=== PATIENT | female | born 1965 | race Caucasian/White ===

== ENCOUNTER 2024-03-11 15:28 | Emergency (ER) | payer BC ==
[2024-03-11] MEDS ORDERED: MOTRIN 600 MG ONE (15:43)
[2024-03-11] MEDS ORDERED: ZOFRAN ODT 4 MG ONE (15:43)
[2024-03-11] MEDS ORDERED: TYLENOL 325 MG ONE (15:44)
[2024-03-11] MEDS: MOTRIN 600 MG PO STA (15:46)
[2024-03-11] MEDS: ZOFRAN ODT 4 MG PO ONE (15:49)
[2024-03-11] MEDS: TYLENOL 325 MG PO STA (15:50)
[2024-03-11 16:23] LABS: INFLUENZA A NEGATIVE (NEGATIVE); INFLUENZA B NEGATIVE (NEGATIVE); RESPIRATORY SYNCTIAL VIRUS NEGATIVE (NEGATIVE); SARS-CoV-2 Xpert Express NEGATIVE (NEGATIVE)
[2024-03-11 16:50] LABS: Appearance Clear (Clear); Bacteria None Seen /HPF (None Seen); Bilirubin Negative (Negative); Blood Trace (Negative); Epithelial Cells None Seen /HPF (None Seen); Glucose, Urine Negative (Negative); Hyaline Casts NONE SEEN /LPF (0-2); Ketones Negative (Negative); Leukocyte Esterase Negative (Negative); Nitrite Negative (Negative); Ph 7.5 (4.6-8.0); Protein,Urine Dip Negative (Negative); Urobilinogen 0.2 mg/dL (0.2); WBC 0-2 /HPF (0-5)
[2024-03-11 16:58] LABS: ADD URINE CULTURE? NO (NO)
[2024-03-11 17:07] VITALS: RESP 20; TEMP 100.5
[2024-03-11 17:33] LABS: Absolute Neutrophil Ct (ANC) 4.79 x10^3/uL (1.56-6.13); BASOPHIL % 1.2 % (0.1-1.2); Basophil (Absolute #) 0.07 x10^3/uL (0.01-0.08); Eosinophil % 1.1 % (0.7-5.8); Eosinophil (Absolute #) 0.06 x10^3/uL (0.04-0.36); Hemoglobin 11.2 g/dL (11.2-15.7); IMMATURE GRAN # 0.02 x10^3u/L (0.001-0.031); IMMATURE GRAN % 0.4 % (0.001-0.429); Lymphocyte (Absolute #) 0.37 x10^3/uL (1.18-3.74); Lymphocytes % 6.5 % (19.3-51.7); Mean Cell Volume 93.4 fL (79.4-94.8); Mean Corpuscular Hemoglobin 30.8 pg (25.6-32.2); Mean Corpuscular Hgb Concent. 32.9 g/dL (32.2-35.5); Mean Platelet Volume 9.7 fL (9.4-12.3); Monocyte (Absolute #) 0.38 x10^3/uL (0.24-0.86); Monocytes % 6.7 % (4.7-12.5); Neutrophil % 84.1 % (34.0-71.1); Platelet Count 185 x10^3/uL (182-369); Red Blood Count 3.64 x10^6/uL (3.93-5.22); Red Cell Distribution Width 12.7 % (11.7-14.4); White Blood Count 5.7 x10^3/uL (3.98-10.04)
--- NOTE | 2024-03-11 17:36 | ERPHSYRPT ---
- History of Present Illness Time Seen by Provider: 03/11/24 15:45 Source: patient Exam Limitations: no limitations Patient Subjective Stated Complaint: pt states bodyaches and chills Triage Nursing Assessment: pt ambulated into the er; pt is axo x4; c/o fever; pt states 8/10 generalized bodyaches; febrile; clear lung sounds; skin hot to the touch, dry; no respiratory distress present; hypertensive Physician History: 58-year-old female presents to our ED for evaluation of bodyaches and chills. Patient was observed to be febrile in our ED. She has not taken any antipyretics. Patient states her p.o. has been decreased p.o. due to not feeling well. Mild nausea. No chest pain or shortness of breath no vomiting no diarrhea no rash. Timing/Duration: today Severity: moderate Modifying Factors: Improves With: nothing Associated Symptoms: denies symptoms Allergies/Adverse Reactions: No Known Drug Allergies Allergy (Unverified 03/11/24 15:35) Home Medications: Abemaciclib [Verzenio] 100 mg PO BID 03/11/24 [History] Atorvastatin Calcium 20 mg PO DAILY 03/11/24 [History] Letrozole 2.5 mg PO DAILY 03/11/24 [History] Hx Tetanus, Diphtheria Vaccination/Date Given: No Hx Influenza Vaccination/Date Given: No Hx Pneumococcal Vaccination/Date Given: No Immunizations Up to Date: No Travel Risk - International Travel Have you traveled outside of the country in past 3 weeks: No - Emerging Infectious Disease Are you exhibiting symptoms associated with any current EIDs: Yes Symptoms: Fever, Headaches/Body Aches/ - Review of Systems Constitutional: No Symptoms, No Fever, No Chills Eyes: No Symptoms Ears, Nose, & Throat: No Symptoms Respiratory: No Symptoms, No Cough, No Dyspnea Cardiac: No Symptoms, No Chest Pain, No Edema, No Syncope Abdominal/Gastrointestinal: No Symptoms, No Abdominal Pain, No Nausea, No Vomiting, No Diarrhea Genitourinary Symptoms: No Symptoms, No Dysuria Musculoskeletal: No Symptoms, No Back Pain, No Neck Pain Skin: No Symptoms, No Rash Neurological: No Symptoms, No Dizziness, No Focal Weakness, No Sensory Changes Psychological: No Symptoms Endocrine: No Symptoms Hematologic/Lymphatic: No Symptoms Immunological/Allergic: No Symptoms All Other Systems: Reviewed and Negative - Past Medical History Pertinent Past Medical History: Yes Neurological History: No Pertinent History ENT History: No Pertinent History Cardiac History: High Cholesterol Respiratory History: Sleep Apnea Endocrine Medical History: No Pertinent History Musculoskeletal History: No Pertinent History GI Medical History: GERD History: Renal Disease Psycho-Social History: No Pertinent History Female Reproductive Disorders: Breast Cancer - Past Surgical History Past Surgical History: Yes Neuro Surgical History: No Pertinent History Cardiac: No Pertinent History Respiratory: No Pertinent History Gastrointestinal: No Pertinent History Genitourinary: No Pertinent History Musculoskeletal: No Pertinent History Female Surgical History: Hysterectomy, Lumpectomy Other Surgical History: left breast surgery - Social History Smoking Status: Never smoker Exposure to second hand smoke: Yes Drug Use: none - Social Determinants of Health Will the patient participate in the screening: Yes Do you worry about a steady place to live?: No Do you have any problems with any of the following?: No known problems In the past 12 months,have you had to go without utilities?: No Transportation Issues: No Has anyone in your support network made you feel unsafe?: No Have you or anyone in your house had to go without enough: No - Nursing Vital Signs Nursing Vital Signs: Initial Vital Signs Blood Pressure 185/97 03/11/24 15:34 Pain Scale Pain Intensity 4 - Physical Exam General Appearance: no apparent distress, alert Eye Exam: PERRL/EOMI, eyes nml inspection Ears, Nose, Throat Exam: normal ENT inspection, TMs normal, pharynx normal, other (Dry oral mucous membranes) Neck Exam: normal inspection, non-tender, supple, full range of motion Respiratory Exam: normal breath sounds, lungs clear, airway intact, No respiratory distress Cardiovascular Exam: regular rate/rhythm, normal heart sounds, normal peripheral pulses Gastrointestinal/Abdomen Exam: soft, normal bowel sounds, No tenderness, No mass Back Exam: normal inspection, normal range of motion, No CVA tenderness, No vertebral tenderness Extremity Exam: normal inspection, normal range of motion, pelvis stable Neurologic Exam: alert, oriented x 3, cooperative, normal mood/affect, nml cereb ellar function, nml station & gait, sensation nml, No motor deficits Skin Exam: normal color, warm, dry, No rash Lymphatic Exam: No adenopathy SpO2 Interpretation: normal SpO2: 95 O2 Delivery: Room Air - Course Nursing assessment & vital signs reviewed: Yes Ordered Tests: Active Orders 24 hr Category Date Time Status CBC W DIFF Stat Lab 03/11/24 17:25 Completed CMP Stat Lab 03/11/24 17:25 Completed Lactic Acid Stat Lab 03/11/24 17:29 Completed UA W/RFX UR CULTURE Stat Lab 03/11/24 16:43 Completed Medication Summary Generic Name Dose Route Start Last Admin Trade Name Ana Laura PRN Reason Stop Dose Admin Sodium Chloride 1,000 mls @ 999 mls/hr 03/11/24 17:14 03/11/24 18:00 Sodium Chloride 0.9% 1000 Ml IV 03/11/24 18:14 999 mls/hr .Q1H1M STA Administration Discontinued Medications Generic Name Dose Route Start Last Admin Trade Name Ana Laura PRN Reason Stop Dose Admin Acetaminophen 975 mg 03/11/24 15:38 03/11/24 15:50 Acetaminophen 325 Mg Tablet PO 03/11/24 15:39 975 mg STAT STA Administration Acetaminophen Confirm 03/11/24 15:44 Acetaminophen 325 Mg Tablet Administered 03/11/24 15:45 Dose 975 mg .ROUTE .STK-MED ONE Sodium Chloride Confirm 03/11/24 17:38 Sodium Chloride 0.9% 1000 Ml Administered 03/11/24 17:39 Dose 1,000 mls @ ud .ROUTE .STK-MED ONE Ibuprofen 600 mg 03/11/24 15:38 03/11/24 15:46 Ibuprofen 600 Mg Tablet PO 03/11/24 15:39 600 mg STAT STA Administration Ibuprofen Confirm 03/11/24 15:43 Ibuprofen 600 Mg Tablet Administered 03/11/24 15:44 Dose 600 mg .ROUTE .STK-MED ONE Ondansetron HCl 4 mg 03/11/24 15:39 03/11/24 15:49 Zofran 4 Mg/Udtablet Orally Disintegrating PO 03/11/24 15:40 4 mg STAT ONE Administration Ondansetron HCl Confirm 03/11/24 15:43 Zofran 4 Mg/Udtablet Orally Disintegrating Administered 03/11/24 15:44 Dose 4 mg .ROUTE .STK-MED ONE Trimethoprim/Sulfamethoxazole 1 tab 03/11/24 17:15 03/11/24 18:00 Smz/Tmp Ds Tablet 1 Tablet PO 03/11/24 17:16 1 tab STAT STA Administration Trimethoprim/Sulfamethoxazole Confirm 03/11/24 17:38 Smz/Tmp Ds Tablet 1 Tablet Administered 03/11/24 17:39 Dose 1 tab PO .STK-MED ONE Lab/Rad Data: Laboratory Result Diagrams 03/11/24 17:25 03/11/24 17:25 Laboratory Results 03/11/24 03/11/24 03/11/24 Range/Units 17:29 17:25 17:25 WBC 5.7 (3.98-10.04) x10^3/uL RBC 3.64 L (3.93-5.22) x10^6/uL Hgb 11.2 (11.2-15.7) g/dL Hct 34.0 L (34.1-44.9) % MCV 93.4 (79.4-94.8) fL MCH 30.8 (25.6-32.2) pg MCHC 32.9 (32.2-35.5) g/dL RDW 12.7 (11.7-14.4) % Plt Count 185 (182-369) x10^3/uL MPV 9.7 (9.4-12.3) fL Gran % 84.1 H (34.0-71.1) % Immature Gran % (Auto) 0.4 (0.001-0.429) % Nucleat RBC Rel Count 0.0 (0.00-0.2) % Eos # (Auto) 0.06 (0.04-0.36) x10^3/uL Immature Gran # (Auto) 0.02 (0.001-0.031) x10^3u/L Absolute Lymphs (auto) 0.37 L (1.18-3.74) x10^3/uL Absolute Monos (auto) 0.38 (0.24-0.86) x10^3/uL Absolute Nucleated RBC 0.00 (0.00-0.012) x10^3u/L Lymphocytes % 6.5 L (19.3-51.7) % Monocytes % 6.7 (4.7-12.5) % Eosinophils % 1.1 (0.7-5.8) % Basophils % 1.2 (0.1-1.2) % Absolute Granulocytes 4.79 (1.56-6.13) x10^3/uL Basophils # 0.07 (0.01-0.08) x10^3/uL Sodium 137 (135-145) mmol/L Potassium 3.7 (3.5-5.1) mmol/L Chloride 102 (98-107) mmol/L Carbon Dioxide 25 (22-30) mmol/L Anion Gap 13.4 (5-15) MEQ/L BUN 13 (7-17) mg/dL Creatinine 0.82 (0.52-1.04) mg/dL Estimated GFR 82.9 ML/MIN Glucose 147 H (74-106) mg/dL Lactic Acid 1.4 (0.4-2.0) Calcium 8.8 (8.4-10.2) mg/dL Total Bilirubin 0.60 (0.2-1.3) mg/dL AST 33 (14-36) U/L ALT 34 (0-35) U/L Alkaline Phosphatase 91 (38-126) U/L Serum Total Protein 6.7 (6.3-8.2) g/dL Albumin 4.1 (3.5-5.0) g/dL Urine Color (Yellow) Urine Appearance (Clear) Urine pH (4.6-8.0) Ur Specific [place] (1.005-1.030) Urine Protein (Negative) Urine Glucose (UA) (Negative) mg/dL Urine Ketones (Negative) Urine Blood (Negative) Urine Nitrite (Negative) Urine Bilirubin (Negative) Urine Urobilinogen (0.2) mg/dL Ur Leukocyte Esterase (Negative) U Hyaline Cast (Auto) (0-2) /LPF Urine Microscopic RBC (0-5) /HPF Urine Microscopic WBC (0-5) /HPF Ur Epithelial Cells (None Seen) /HPF Urine Bacteria (None Seen) /HPF Urine Culture Reflexed (NO) Influenza Type A Ag (NEGATIVE) Influenza Type B Ag (NEGATIVE) RSV (PCR) (NEGATIVE) SARS-CoV-2 (PCR) (NEGATIVE) 03/11/24 03/11/24 Range/Units 16:43 15:40 WBC (3.98-10.04) x10^3/uL RBC (3.93-5.22) x10^6/uL Hgb (11.2-15.7) g/dL Hct (34.1-44.9) % MCV (79.4-94.8) fL MCH (25.6-32.2) pg MCHC (32.2-35.5) g/dL RDW (11.7-14.4) % Plt Count (182-369) x10^3/uL MPV (9.4-12.3) fL Gran % (34.0-71.1) % Immature Gran % (Auto) (0.001-0.429) % Nucleat RBC Rel Count (0.00-0.2) % Eos # (Auto) (0.04-0.36) x10^3/uL Immature Gran # (Auto) (0.001-0.031) x10^3u/L Absolute Lymphs (auto) (1.18-3.74) x10^3/uL Absolute Monos (auto) (0.24-0.86) x10^3/uL Absolute Nucleated RBC (0.00-0.012) x10^3u/L Lymphocytes % (19.3-51.7) % Monocytes % (4.7-12.5) % Eosinophils % (0.7-5.8) % Basophils % (0.1-1.2) % Absolute Granulocytes (1.56-6.13) x10^3/uL Basophils # (0.01-0.08) x10^3/uL Sodium (135-145) mmol/L Potassium (3.5-5.1) mmol/L Chloride (98-107) mmol/L Carbon Dioxide (22-30) mmol/L Anion Gap (5-15) MEQ/L BUN (7-17) mg/dL Creatinine (0.52-1.04) mg/dL Estimated GFR ML/MIN Glucose (74-106) mg/dL Lactic Acid (0.4-2.0) Calcium (8.4-10.2) mg/dL Total Bilirubin (0.2-1.3) mg/dL AST (14-36) U/L ALT (0-35) U/L Alkaline Phosphatase (38-126) U/L Serum Total Protein (6.3-8.2) g/dL Albumin (3.5-5.0) g/dL Urine Color Yellow (Yellow) Urine Appearance Clear (Clear) Urine pH 7.5 (4.6-8.0) Ur Specific [place] 1.010 (1.005-1.030) Urine Protein Negative (Negative) Urine Glucose (UA) Negative (Negative) mg/dL Urine Ketones Negative (Negative) Urine Blood Trace (Negative) Urine Nitrite Negative (Negative) Urine Bilirubin Negative (Negative) Urine Urobilinogen 0.2 (0.2) mg/dL Ur Leukocyte Esterase Negative (Negative) U Hyaline Cast (Auto) NONE SEEN (0-2) /LPF Urine Microscopic RBC 6-10 A (0-5) /HPF Urine Microscopic WBC 0-2 (0-5) /HPF Ur Epithelial Cells None Seen (None Seen) /HPF Urine Bacteria None Seen (None Seen) /HPF Urine Culture Reflexed NO (NO) Influenza Type A Ag NEGATIVE (NEGATIVE) Influenza Type B Ag NEGATIVE (NEGATIVE) RSV (PCR) NEGATIVE (NEGATIVE) SARS-CoV-2 (PCR) NEGATIVE (NEGATIVE) - Progress Progress: improved Progress Note: Patient received Tylenol Motrin. RSV influenza COVID-negative. Patient reassessed. Patient still had a resting tachycardia and spite of the antipyretics. Patient been advised that her second digit left foot has an infection. Patient was seen by her primary care doctor and diagnosed with a fungal infection but patient states the infection appears to be somewhat worse. The toe is tender swollen no obvious lymphangitis. No lymphadenopathy. At that point we decided to add a lactic acid which was 1.4. IV fluids ordered and infused. Patient reports she had not been eating well. Not eating drinking may have caused a degree of dehydration. A dose of Bactrim administered as well. Patient reassessed. She appears comfortable. Laboratory workup essentially nonremarkable. No indication for further workup. Will discharge patient home. A prescription for Bactrim forwarded to patient's pharmacy. Patient agrees to follow-up with her primary care doctor within 48 hours for reevaluation. Portions of this note were created with voice recognition technology. There may be grammatical, spelling, punctuation or sound alike errors Complexity problem addressed is moderate acute complicated. No critical care time. Complex of data reviewed and analyzed is moderate. Test ordered chest reviewed results analyzed and correlated clinically with history and physical exam. Risk of complication and or risk of morbidity/mortality patient management is low. Vital stable. Time spent to discharge patient is approximately 20 minutes. Plan of care established for shared decision making. No social determinants of health present to impede follow-up. Portions of this note were created with voice recognition technology. There may be grammatical, spelling, punctuation or sound alike errors 03/11/24 17:39 Patient referred to the orthopedic clinic for further evaluation of her toe infection. 03/11/24 18:07 Counseled pt/family regarding: lab results, diagnosis, need for follow-up - Departure Departure Disposition: Home Clinical Impression: Chills, Body aches, Toe infection, Dehydration Condition: Stable Critical Care Time: No Referrals: BRENDEN BYRNE RECYCLING TECHNICIAN [Primary Care Provider] - Follow up/PCP as directed Additional Instructions: Discharge/Care Plan SYLWIA WILSON was seen on 03/11/24 in the Emergency Room. The patient was counseled regarding Diagnosis,Lab results, Imaging studies, need for follow up and when to return to the Emergency Room. Prescriptions given: Discharge Note I have spoken with the patient and/or caregivers. I have explained the patient's condition, diagnosis and treatment plan based on the information available to me at this time. I have answered the patient's and/or caregiver's questions and addressed any concerns. The patient and/or caregivers have as good understanding of the patient's diagnosis, condition and treatment plan as can be expected at this point. The vital signs have been stable. The patient's condition is stable and appropriate for discharge from the emergency department. The patient will pursue further outpatient evaluation with the primary care physician or other designated or consulting physician as outlined in the discharge instructions. The patient and/or caregivers are agreeable to this plan of care and follow-up instructions have been explained in detail. The patient and/or caregivers have received these instruction. The patient/and or caregivers are aware that any significant change in condition or worsening of symptoms should prompt an immediate return to this or the closest emergency department or call 911. Prescriptions: Smz/Tmp Ds Tablet [Bactrim Ds Tablet] 1 tab PO Q12H 7 Days #14 tablet Outpatient Orders: Ortho Referral Time Frame: 1 Day, Facility: [facility], Location: ORTHO CLINIC
[2024-03-11] MEDS ORDERED: BACTRIM DS TABLET PO ONE (17:38)
[2024-03-11] MEDS ORDERED: Sodium Chloride 0.9% 1000 ML 1,000 ML ONE (17:38)
[2024-03-11 17:49] LABS: ALBUMIN 4.1 g/dL (3.5-5.0); ANION GAP 13.4 MEQ/L (5-15); BILIRUBIN,TOTAL 0.6 mg/dL (0.2-1.3); Calcium 8.8 mg/dL (8.4-10.2); Creatinine 1 0.82 mg/dL (0.52-1.04); EST GLOMERULAR FILTRATION RATE 82.9 ML/MIN; Potassium 3.7 mmol/L (3.5-5.1); Total Protein 6.7 g/dL (6.3-8.2)
[2024-03-11] MEDS: Sodium Chloride 0.9% 1000 ML 1,000 ML IV STA (18:00)
[2024-03-11] MEDS: BACTRIM DS TABLET PO STA (18:00)
[2024-03-11 19:02] VITALS: BP 104/44; PULSE 84; O2SAT 94
[2024-03-11 20:54] LABS: Slide Review 1 YES
== END 2024-03-11 19:10 | disposition home or self-care (01) ==
LOC: ED 15:28
DX: L08.9 Local infection of the skin and subcutaneous tissue, unspecified (principal); R68.83 Chills (without fever); M79.10 Myalgia, unspecified site; E86.0 Dehydration; E78.5 Hyperlipidemia, unspecified; Z79.899 Other long term (current) drug therapy
CPT/HCPCS: 0241U; 36000; 36415; 80053; 81001; 83605; 85025; 96360; 99284; Q0162; A9270-GY